=== PATIENT | female | born 1955 | race Hispanic/Latino ===

== ENCOUNTER 2017-09-02 07:17 | Outpatient (CLI) | payer OTHER ==
--- NOTE | 2017-09-02 08:38 | XRay Report ---
XRAY BILATERAL KNEE THREE VIEWS EACH: 09/02/17 07:17:00 CLINICAL: Bilateral knee pain. FINDINGS: Right: Mild osteopenia. Medial joint space narrowing with small osteophytes. Slight widening of the lateral joint space. Small patellofemoral osteophytes. No fracture or dislocation. No joint effusion. Normal soft tissues. Left: Mild osteopenia. Medial joint space narrowing with small osteophytes. Normal lateral joint space. Small patellofemoral osteophytes. No fracture or dislocation. No joint effusion.Normal soft tissues. IMPRESSION: Mild osteoarthritis involving bilateral medial joint spaces and patellofemoral joints.
== END 2017-09-02 07:18 | disposition home or self-care (01) ==
LOC: SPVIMAG 07:17
PROVIDERS: ATTEND Orthopaedic Surgery Sports Medicine
DX: M17.0 Bilateral primary osteoarthritis of knee (principal); M85.861 Other specified disorders of bone density and structure, right lower leg; M85.862 Other specified disorders of bone density and structure, left lower leg